=== PATIENT | male | born 1990 | race Caucasian/White ===

== ENCOUNTER 2017-10-21 07:57 | Inpatient (IN) | payer SELFPAY ==
[2017-10-21] MEDS ORDERED: Sodium Chloride 0.9% 1,000 ML IV ONE ×2 (08:01→10:57)
[2017-10-21] MEDS ORDERED: Sodium Chloride 0.9% 2.5 ML Syringe FLUSH PRN (08:01)
[2017-10-21] MEDS ORDERED: Sodium Chloride 0.9% 10 ML Syringe FLUSH PRN (08:01)
--- NOTE | 2017-10-21 08:03 | EDM.PDOC ---
ED HPI GENERAL MEDICAL PROBLEM - General Stated Complaint: SEIZURE Time Seen by Provider: 10/21/17 08:00 - History of Present Illness INITIAL COMMENTS - FREE TEXT/NARRATIVE: HISTORY AND PHYSICAL: History of present illness: Patient 27-year-old white male presents status post generalized seizure that lasted 3-5 minutes with associated postictal. There is no associated trauma this occurred at work patient is no seizure history denies drug or alcohol abuse. There's been no recent trauma upon arrival he has no complaints of chest pain shortness of breath or other concerns. Review of systems: As per history of present illness and below otherwise all systems reviewed and negative. Past medical history: As per history of present illness and as reviewed below otherwise noncontributory. Surgical history: As per history of present illness and as reviewed below otherwise noncontributory. Social history: No reported history of drug or alcohol abuse. Family history: As per history of present illness and as reviewed below otherwise noncontributory. Physical exam: HEENT: Atraumatic, normocephalic, pupils reactive, negative for conjunctival pallor or scleral icterus, mucous membranes moist, throat clear, neck supple, nontender, trachea midline. Lungs: Clear to auscultation, breath sounds equal bilaterally, chest nontender. Heart: S1S2, regular, negative for clicks, rubs, or JVD. Abdomen: Soft, nondistended, nontender. Negative for masses or hepatosplenomegaly. Negative for costovertebral tenderness. Pelvis: Stable nontender. Genitourinary: Deferred. Rectal: Deferred. Extremities: Atraumatic, negative for cords or calf pain. Neurovascular unremarkable. Neuro: Awake, alert, oriented. Cranial nerves II through XII unremarkable. Cerebellum unremarkable. Motor and sensory unremarkable throughout. Exam nonfocal. Diagnostics: CBC CMP PT/INR urine drug screen EtOH prolactin level CT brain chest x-ray EKG Therapeutics: IV O2 monitor Impression: 1 new-onset seizure Definitive disposition and diagnosis as appropriate pending reevaluation and review of above. - Related Data Allergies Allergy/AdvReac Type Severity Reaction Status Date / Time nickel Allergy Rash Verified 10/21/17 08:05 Home Meds: Home Meds . [No Known Home Meds] 10/21/17 [History] ED ROS GENERAL - Review of Systems Review Of Systems: ROS reveals no pertinent complaints other than HPI. ED EXAM, GENERAL - Physical Exam Exam: See Below (See dictation) Course - Vital Signs Last Recorded V/S: Last Vital Signs Temp 36.8 C 10/21/17 09:48 Pulse 75 10/21/17 09:48 Resp 14 10/21/17 09:48 BP 122/78 10/21/17 09:48 Pulse Ox 97 10/21/17 09:48 - Orders/Labs/Meds Orders: Active Orders 24 hr Category Date Time Status Cardiac Monitoring [RC] . DIRECTED Care 10/21/17 08:00 Active EKG Documentation Completion [RC] STAT Care 10/21/17 08:00 Active Pulse Oximetry [RC] ASDIRECTED Care 10/21/17 08:00 Active Sodium Chloride 0.9% [Saline Flush] Med 10/21/17 08:01 Active 10 ml FLUSH ASDIRECTED PRN Sodium Chloride 0.9% [Saline Flush] Med 10/21/17 08:01 Active 2.5 ml FLUSH ASDIRECTED PRN Saline Lock Insert [OM.PC] Stat Oth 10/21/17 08:00 Ordered Medication Orders Sodium Chloride (Saline Flush) 10 ml FLUSH ASDIRECTED PRN PRN Reason: Keep Vein Open Sodium Chloride (Saline Flush) 2.5 ml FLUSH ASDIRECTED PRN PRN Reason: Keep Vein Open Labs: Laboratory Tests 10/21/17 10/21/17 10/21/17 Range/Units 08:05 08:05 08:05 WBC 4.14 (4.0-11.0) K/uL RBC 4.20 L (4.50-5.90) M/uL Hgb 13.9 (13.0-17.0) g/dL Hct 40.7 (38.0-50.0) % MCV 96.9 (80.0-98.0) fL MCH 33.1 H (27.0-32.0) pg MCHC 34.2 (31.0-37.0) g/dL RDW Std Deviation 45.7 (28.0-62.0) fl RDW Coeff of Monika 13 (11.0-15.0) % Plt Count 124 L (150-400) K/uL MPV 9.50 (7.40-12.00) fL Add Manual Diff YES Neutrophils % (Manual) 67 (48.0-80.0) % Lymphocytes % (Manual) 19 (16.0-40.0) % Monocytes % (Manual) 14 (0.0-15.0) % Nucleated RBC % 0.0 /100WBC Absolute Seg Neuts 2.8 (1.4-5.7) Lymphocytes # (Manual) 0.8 (0.6-2.4) Monocytes # (Manual) 0.6 (0.0-0.8) Nucleated RBCs # 0 K/uL INR 1.04 ABG Carboxyhemoglobin 3.1 (0-15) % Sodium (136-148) mmol/L Potassium (3.5-5.1) mmol/L Chloride (98-107) mmol/L Carbon Dioxide (21.0-32.0) mmol/L BUN (7.0-18.0) mg/dL Creatinine (0.8-1.3) mg/dL Est Cr Clr Drug Dosing mL/min Estimated GFR (MDRD) ml/min Glucose (74-106) mg/dL Calcium (8.5-10.1) mg/dL Total Bilirubin (0.2-1.0) mg/dL AST (15-37) IU/L ALT (14-63) IU/L Alkaline Phosphatase (46-116) U/L Total Protein (6.4-8.2) g/dL Albumin (3.4-5.0) g/dL Globulin (2.0-3.5) g/dL Albumin/Globulin Ratio (1.3-2.8) Prolactin (1-23) ng/mL Urine Color Urine Appearance Urine pH (5.0-8.0) Ur Specific [place] (1.001-1.035) Urine Protein (NEGATIVE) mg/dL Urine Glucose (UA) (NEGATIVE) mg/dL Urine Ketones (NEGATIVE) mg/dL Urine Occult Blood (NEGATIVE) Urine Nitrite (NEGATIVE) Urine Bilirubin (NEGATIVE) Urine Ictotest Urine Urobilinogen (<2.0) EU/dL Ur Leukocyte Esterase (NEGATIVE) Urine RBC (0-2/HPF) Urine WBC (0-5/HPF) Ur Epithelial Cells (NONE-FEW) Urine Bacteria (NEGATIVE) Urine Mucus (NONE-MOD) Urine Opiates Screen (NEGATIVE) Ur Oxycodone Screen (NEGATIVE) Urine Methadone Screen (NEGATIVE) Ur Barbiturates Screen (NEGATIVE) Ur Phencyclidine Scrn (NEGATIVE) Ur Amphetamine Screen (NEGATIVE) U Methamphetamines Scrn (NEGATIVE) U Benzodiazepines Scrn (NEGATIVE) U Cocaine Metab Screen (NEGATIVE) U Marijuana (THC) Screen (NEGATIVE) Ethyl Alcohol mg/dL 10/21/17 10/21/17 10/21/17 Range/Units 08:05 08:45 08:45 WBC (4.0-11.0) K/uL RBC (4.50-5.90) M/uL Hgb (13.0-17.0) g/dL Hct (38.0-50.0) % MCV (80.0-98.0) fL MCH (27.0-32.0) pg MCHC (31.0-37.0) g/dL RDW Std Deviation (28.0-62.0) fl RDW Coeff of Monika (11.0-15.0) % Plt Count (150-400) K/uL MPV (7.40-12.00) fL Add Manual Diff Neutrophils % (Manual) (48.0-80.0) % Lymphocytes % (Manual) (16.0-40.0) % Monocytes % (Manual) (0.0-15.0) % Nucleated RBC % /100WBC Absolute Seg Neuts (1.4-5.7) Lymphocytes # (Manual) (0.6-2.4) Monocytes # (Manual) (0.0-0.8) Nucleated RBCs # K/uL INR ABG Carboxyhemoglobin (0-15) % Sodium 136 (136-148) mmol/L Potassium 2.9 L (3.5-5.1) mmol/L Chloride 96 L (98-107) mmol/L Carbon Dioxide 19.1 L (21.0-32.0) mmol/L BUN 5 L (7.0-18.0) mg/dL Creatinine 1.3 (0.8-1.3) mg/dL Est Cr Clr Drug Dosing 80.11 mL/min Estimated GFR (MDRD) > 60.0 ml/min Glucose 178 H (74-106) mg/dL Calcium 9.8 (8.5-10.1) mg/dL Total Bilirubin 1.4 H (0.2-1.0) mg/dL AST 133 H (15-37) IU/L ALT 156 H (14-63) IU/L Alkaline Phosphatase 72 (46-116) U/L Total Protein 8.5 H (6.4-8.2) g/dL Albumin 4.9 (3.4-5.0) g/dL Globulin 3.6 H (2.0-3.5) g/dL Albumin/Globulin Ratio 1.4 (1.3-2.8) Prolactin 47 H (1-23) ng/mL Urine Color DARK YELLOW Urine Appearance CLEAR Urine pH 6.0 (5.0-8.0) Ur Specific [place] >= 1.030 (1.001-1.035) Urine Protein >=300 (NEGATIVE) mg/dL Urine Glucose (UA) 100 H (NEGATIVE) mg/dL Urine Ketones TRACE H (NEGATIVE) mg/dL Urine Occult Blood NEGATIVE (NEGATIVE) Urine Nitrite POSITIVE H (NEGATIVE) Urine Bilirubin MODERATE H (NEGATIVE) Urine Ictotest NEGATIVE Urine Urobilinogen >=8.0 H (<2.0) EU/dL Ur Leukocyte Esterase NEGATIVE (NEGATIVE) Urine RBC 1-3 (0-2/HPF) Urine WBC 0-2 (0-5/HPF) Ur Epithelial Cells OCCASIONAL (NONE-FEW) Urine Bacteria RARE (NEGATIVE) Urine Mucus MODERATE (NONE-MOD) Urine Opiates Screen NEGATIVE (NEGATIVE) Ur Oxycodone Screen NEGATIVE (NEGATIVE) Urine Methadone Screen NEGATIVE (NEGATIVE) Ur Barbiturates Screen NEGATIVE (NEGATIVE) Ur Phencyclidine Scrn NEGATIVE (NEGATIVE) Ur Amphetamine Screen NEGATIVE (NEGATIVE) U Methamphetamines Scrn NEGATIVE (NEGATIVE) U Benzodiazepines Scrn NEGATIVE (NEGATIVE) U Cocaine Metab Screen NEGATIVE (NEGATIVE) U Marijuana (THC) Screen POSITIVE (NEGATIVE) Ethyl Alcohol <3 mg/dL Meds: Medications Generic Name Dose Route Start Last Admin Trade Name Freq PRN Reason Stop Dose Admin Sodium Chloride 10 ml 10/21/17 08:01 Saline Flush FLUSH ASDIRECTED PRN Keep Vein Open Sodium Chloride 2.5 ml 10/21/17 08:01 Saline Flush FLUSH ASDIRECTED PRN Keep Vein Open Discontinued Medications Generic Name Dose Route Start Last Admin Trade Name Freq PRN Reason Stop Dose Admin Sodium Chloride 1,000 mls @ 999 mls/hr 10/21/17 08:01 10/21/17 08:12 Normal Saline IV 10/21/17 09:01 999 mls/hr STAT ONE Administration Departure - Departure Time of Disposition: 10:16 Disposition: Refer to Observation Condition: Good Clinical Impression: New onset seizure - Discharge Information - My Orders Last 24 Hours: My Active Orders 10/21/17 08:00 Cardiac Monitoring [RC] . DIRECTED EKG Documentation Completion [RC] STAT Pulse Oximetry [RC] ASDIRECTED Saline Lock Insert [OM.PC] Stat 10/21/17 08:01 Sodium Chloride 0.9% [Saline Flush] 10 ml FLUSH ASDIRECTED PRN Sodium Chloride 0.9% [Saline Flush] 2.5 ml FLUSH ASDIRECTED PRN - Assessment/Plan Last 24 Hours: My Active Orders 10/21/17 08:00 Cardiac Monitoring [RC] . DIRECTED EKG Documentation Completion [RC] STAT Pulse Oximetry [RC] ASDIRECTED Saline Lock Insert [OM.PC] Stat 10/21/17 08:01 Sodium Chloride 0.9% [Saline Flush] 10 ml FLUSH ASDIRECTED PRN Sodium Chloride 0.9% [Saline Flush] 2.5 ml FLUSH ASDIRECTED PRN
[2017-10-21 08:46] LABS: CHLORIDE,CL 96 mmol/L (98-107); SODIUM,NA 136 mmol/L (136-148)
--- NOTE | 2017-10-21 09:44 | CR ---
EXAMINATION: Portable chest radiograph. HISTORY: Shortness of breath. FINDINGS: The trachea is midline. The cardiomediastinal silhouette is within normal limits. No pulmonary infilt rates, effusions or pneumothorax. Osseous structures appear unremarkable. IMPRESSION: No acute cardiopulmonary process.
--- NOTE | 2017-10-21 09:46 | CT ---
EXAMINATION: Non contrast CT head. Coronal and sagittal reformats. HISTORY: Pain FINDINGS: No evidence of intra or extra axial hemorrhage, mass, midline shift, hydrocephalus or edema. No hypoattenuation changes in the major vascular territories to suggest acute infarct. No abnormal intracranial calcifications are detected. No evidence of substantial vascular calcificat ions. There is a small mucous retention cyst within the left maxillary sinus. Mastoid air cells are clear. Orbits and globes are symmetric. Pituitary fossa appears unremarkable. Calvarium is intact. No evidence of skull fracture. IMPRESSION: No acute intracranial findings.
[2017-10-21] MEDS ORDERED: Alum Hydrox/Mag Hydrox/Simeth 15 ML, Lidocaine 2% 5 ML PO ONE ×2 (11:02)
[2017-10-21] MEDS ORDERED: Ondansetron 4 MG/2 ML SDV IVPUSH ONE (11:18)
--- NOTE | 2017-10-21 11:31 | PCM.HP ---
H&P History of Present Illness - General Date of Service: 10/21/17 Admit Problem/Dx: Admission Diagnosis/Problem Admission Diagnosis/Problem Seizure Source of Information: Patient History Limitations: Reports: No Limitations - History of Present Illness Initial Comments - Free Text/Narative: Note: This is patient's admission as well as transfer/discharge summary. 27-year-old male admitted 10/21/17 for new onset seizure found to be in acute alcohol withdrawal with past medical history of alcohol abuse. Patient initially presented to emergency department with chief complaint of new onset seizure. 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 His coworker stated that he had a generalized tonic clonic seizure. Thus patient was taken directly to the emergency department for further evaluation. Patient reported no past seizure history. He does admit to drinking a half a liter of vodka daily. He also states he's been admitted to hospitals in the past for acute alcohol withdrawal. States that he does have serious withdrawal and has had to stay multiple days secondary to this. Does admit to some violent behavior with his withdrawl. States his coworkers said that he had a seizure for approximately 5-6 minutes. Patient is originally from [facility] and states that he plans to return there and is hoping for some alcohol treatment. Last drink was yesterday before his normal work shifts. Patient denied any chest pain, palpitations, shortness breath, or new focal neurologic deficits. Of note patient was initially admitted to the hospital under the impression of new onset seizures. Alcohol history was not forthcoming until patient was on the floor. Secondary to staffing issues and a full ICU patient was transferred for further treatment to [place]. In the emergency department initial labs showed an unremarkable CBC, INR, and carboxyhemoglobin. He was hypokalemic at 2.9 with a low bicarbonate 19.1. There was elevated liver function tests including a total bilirubin of 1.4, AST 133, and ADL TE of 156. Prolactin was elevated at 47. Chest x-ray and CT of the head was unremarkable. Patient did not complain of any abdominal pain but then before transfer had one episode of emesis with blood streaking. Patient was placed nothing by mouth and started on a banana bag as well as Protonix 80 mg IV. He was transferred to [facility] with accepting physician Dr. Roger in their emergency department. All above information was communicated to accepting physician. Patient was transferred by ambulance. Generalized Pain Score (Numeric/FACES): 3 - Related Data Allergies/Adverse Reactions: Allergies Allergy/AdvReac Type Severity Reaction Status Date / Time nickel Allergy Rash Verified 10/21/17 08:05 Home Medications: Home Meds . [No Known Home Meds] 10/21/17 [History] Past Medical History - Past Health History Medical/Surgical History: Denies Medical/Surgical History - Infectious Disease History Infectious Disease History: Reports: Chicken Pox Social & Family History - Family History Family Medical History: Noncontributory - Tobacco Use Smoking Status *Q: Current Every Day Smoker Years of Tobacco use: 10 Packs/Tins Daily: 0 - Caffeine Use Caffeine Use: Reports: None - Recreational Drug Use Recreational Drug Use: Yes Recreational Drug Type: Reports: Marijuana/Hashish Other Recreational Drug Type: occasional marijuana use H&P Review of Systems - Review of Systems: Review Of Systems: See Below General: Reports: Fatigue. Denies: Fever, Chills, Malaise, Weakness HEENT: Denies: Dysphasia, Headaches, Sore Throat Pulmonary: Denies: Shortness of Breath, Pleuritic Chest Pain, Cough, Sputum Cardiovascular: Denies: Chest Pain, Palpitations, Edema Gastrointestinal: Reports: Nausea. Denies: Abdominal Pain, Black Stool, Bloody Stool, Diarrhea, Vomiting Genitourinary: Denies: Dysuria, Hematuria Musculoskeletal: Denies: Neck Pain, Leg Pain Skin: Denies: Cyanosis Psychiatric: Reports: Depression, Anxiety. Denies: Confusion Neurological: Reports: Seizure. Denies: Confusion, Dizziness, Headache Hematologic/Lymphatic: Denies: Anemia Immunologic: Denies: Anaphylaxis Exam - Exam Exam: See Below - Vital Signs Vital Signs: Last Vital Signs Temp 98.2 F 10/21/17 10:55 Pulse 75 10/21/17 10:55 Resp 16 10/21/17 10:55 BP 128/72 10/21/17 10:55 Pulse Ox 96 10/21/17 10:55 Weight: 65.771 kg - Exam Quality Assessment: DVT Prophylaxis General: Alert, Oriented, Cooperative, Mild Distress HEENT: Conjunctiva Clear, EACs Clear, EOMI, Hearing Intact, Mucosa Moist & [place] , Nares Patent, Normal Nasal Septum, Posterior Pharynx Clear, PERRLA Neck: Supple, Trachea Midline, 2 Lungs: Clear to Auscultation, Normal Respiratory Effort. No: Crackles, Rales, Rhonchi Cardiovascular: Regular Rhythm, Normal S1, Normal S2, Tachycardia GI/Abdominal Exam: Normal Bowel Sounds, No Organomegaly, No Distention, Pelvis Stable (Male) Exam: Deferred Rectal (Males) Exam: Deferred Back Exam: Normal Inspection Extremities: Normal Inspection, No Pedal Edema, Normal Capillary Refill Peripheral Pulses: 2+: Radial (L), Radial (R), Posterior Tibial (L), Posterior Tibial (R), Dorsalis Pedis (L), Dorsalis Pedis (R) Skin: Warm, Intact, Moist Neurological: Cranial Nerves Intact Neuro Extensive - Mental Status: Alert, Oriented x3, Normal Mood/Affect, Normal Cognition Neuro Extensive - Motor, Sensory, Reflexes: CN II-XII Intact Psychiatric: Alert, Anxious, Withdrawal Symptoms - Patient Data Lab Results Last 24 hrs: Laboratory Results - last 24 hr 10/21/17 10/21/17 10/21/17 Range/Units 08:05 08:05 08:05 WBC 4.14 (4.0-11.0) K/uL RBC 4.20 L (4.50-5.90) M/uL Hgb 13.9 (13.0-17.0) g/dL Hct 40.7 (38.0-50.0) % MCV 96.9 (80.0-98.0) fL MCH 33.1 H (27.0-32.0) pg MCHC 34.2 (31.0-37.0) g/dL RDW Std Deviation 45.7 (28.0-62.0) fl RDW Coeff of Monika 13 (11.0-15.0) % Plt Count 124 L (150-400) K/uL MPV 9.50 (7.40-12.00) fL Add Manual Diff YES Neutrophils % (Manual) 67 (48.0-80.0) % Lymphocytes % (Manual) 19 (16.0-40.0) % Monocytes % (Manual) 14 (0.0-15.0) % Nucleated RBC % 0.0 /100WBC Absolute Seg Neuts 2.8 (1.4-5.7) Lymphocytes # (Manual) 0.8 (0.6-2.4) Monocytes # (Manual) 0.6 (0.0-0.8) Nucleated RBCs # 0 K/uL INR 1.04 ABG Carboxyhemoglobin 3.1 (0-15) % Sodium (136-148) mmol/L Potassium (3.5-5.1) mmol/L Chloride (98-107) mmol/L Carbon Dioxide (21.0-32.0) mmol/L BUN (7.0-18.0) mg/dL Creatinine (0.8-1.3) mg/dL Est Cr Clr Drug Dosing mL/min Estimated GFR (MDRD) ml/min Glucose (74-106) mg/dL Calcium (8.5-10.1) mg/dL Total Bilirubin (0.2-1.0) mg/dL AST (15-37) IU/L ALT (14-63) IU/L Alkaline Phosphatase (46-116) U/L Total Protein (6.4-8.2) g/dL Albumin (3.4-5.0) g/dL Globulin (2.0-3.5) g/dL Albumin/Globulin Ratio (1.3-2.8) Prolactin (1-23) ng/mL Urine Color Urine Appearance Urine pH (5.0-8.0) Ur Specific [place] (1.001-1.035) Urine Protein (NEGATIVE) mg/dL Urine Glucose (UA) (NEGATIVE) mg/dL Urine Ketones (NEGATIVE) mg/dL Urine Occult Blood (NEGATIVE) Urine Nitrite (NEGATIVE) Urine Bilirubin (NEGATIVE) Urine Ictotest Urine Urobilinogen (<2.0) EU/dL Ur Leukocyte Esterase (NEGATIVE) Urine RBC (0-2/HPF) Urine WBC (0-5/HPF) Ur Epithelial Cells (NONE-FEW) Urine Bacteria (NEGATIVE) Urine Mucus (NONE-MOD) Urine Opiates Screen (NEGATIVE) Ur Oxycodone Screen (NEGATIVE) Urine Methadone Screen (NEGATIVE) Ur Barbiturates Screen (NEGATIVE) Ur Phencyclidine Scrn (NEGATIVE) Ur Amphetamine Screen (NEGATIVE) U Methamphetamines Scrn (NEGATIVE) U Benzodiazepines Scrn (NEGATIVE) U Cocaine Metab Screen (NEGATIVE) U Marijuana (THC) Screen (NEGATIVE) Ethyl Alcohol mg/dL 10/21/17 10/21/17 10/21/17 Range/Units 08:05 08:45 08:45 WBC (4.0-11.0) K/uL RBC (4.50-5.90) M/uL Hgb (13.0-17.0) g/dL Hct (38.0-50.0) % MCV (80.0-98.0) fL MCH (27.0-32.0) pg MCHC (31.0-37.0) g/dL RDW Std Deviation (28.0-62.0) fl RDW Coeff of Monika (11.0-15.0) % Plt Count (150-400) K/uL MPV (7.40-12.00) fL Add Manual Diff Neutrophils % (Manual) (48.0-80.0) % Lymphocytes % (Manual) (16.0-40.0) % Monocytes % (Manual) (0.0-15.0) % Nucleated RBC % /100WBC Absolute Seg Neuts (1.4-5.7) Lymphocytes # (Manual) (0.6-2.4) Monocytes # (Manual) (0.0-0.8) Nucleated RBCs # K/uL INR ABG Carboxyhemoglobin (0-15) % Sodium 136 (136-148) mmol/L Potassium 2.9 L (3.5-5.1) mmol/L Chloride 96 L (98-107) mmol/L Carbon Dioxide 19.1 L (21.0-32.0) mmol/L BUN 5 L (7.0-18.0) mg/dL Creatinine 1.3 (0.8-1.3) mg/dL Est Cr Clr Drug Dosing 80.11 mL/min Estimated GFR (MDRD) > 60.0 ml/min Glucose 178 H (74-106) mg/dL Calcium 9.8 (8.5-10.1) mg/dL Total Bilirubin 1.4 H (0.2-1.0) mg/dL AST 133 H (15-37) IU/L ALT 156 H (14-63) IU/L Alkaline Phosphatase 72 (46-116) U/L Total Protein 8.5 H (6.4-8.2) g/dL Albumin 4.9 (3.4-5.0) g/dL Globulin 3.6 H (2.0-3.5) g/dL Albumin/Globulin Ratio 1.4 (1.3-2.8) Prolactin 47 H (1-23) ng/mL Urine Color DARK YELLOW Urine Appearance CLEAR Urine pH 6.0 (5.0-8.0) Ur Specific [place] >= 1.030 (1.001-1.035) Urine Protein >=300 (NEGATIVE) mg/dL Urine Glucose (UA) 100 H (NEGATIVE) mg/dL Urine Ketones TRACE H (NEGATIVE) mg/dL Urine Occult Blood NEGATIVE (NEGATIVE) Urine Nitrite POSITIVE H (NEGATIVE) Urine Bilirubin MODERATE H (NEGATIVE) Urine Ictotest NEGATIVE Urine Urobilinogen >=8.0 H (<2.0) EU/dL Ur Leukocyte Esterase NEGATIVE (NEGATIVE) Urine RBC 1-3 (0-2/HPF) Urine WBC 0-2 (0-5/HPF) Ur Epithelial Cells OCCASIONAL (NONE-FEW) Urine Bacteria RARE (NEGATIVE) Urine Mucus MODERATE (NONE-MOD) Urine Opiates Screen NEGATIVE (NEGATIVE) Ur Oxycodone Screen NEGATIVE (NEGATIVE) Urine Methadone Screen NEGATIVE (NEGATIVE) Ur Barbiturates Screen NEGATIVE (NEGATIVE) Ur Phencyclidine Scrn NEGATIVE (NEGATIVE) Ur Amphetamine Screen NEGATIVE (NEGATIVE) U Methamphetamines Scrn NEGATIVE (NEGATIVE) U Benzodiazepines Scrn NEGATIVE (NEGATIVE) U Cocaine Metab Screen NEGATIVE (NEGATIVE) U Marijuana (THC) Screen POSITIVE (NEGATIVE) Ethyl Alcohol <3 mg/dL Result Diagrams: 10/21/17 08:05 10/21/17 08:05 *Q Meaningful Use (ADM) - VTE *Q VTE Criteria *Q: - Stroke *Q Stroke Criteria *Q: - AMI *Q AMI Criteria *Q: - Problem List (1) Alcohol withdrawal seizure SNOMED Code(s): 046111117 ICD Code: F10.239 - ALCOHOL DEPENDENCE WITH WITHDRAWAL, UNSPECIFIED; R56.9 - UNSPECIFIED CONVULSIONS Status: Acute Priority: High Current Visit: Yes Qualifiers: Complication of substance-induced condition: with unspecified complication Qualified Code(s): F10.239 - Alcohol dependence with withdrawal, unspecified; R56.9 - Unspecified convulsions; R56.9 - Unspecified convulsions; R56.9 - Unspecified convulsions; R56.9 - Unspecified convulsions (2) New onset seizure SNOMED Code(s): 22773600 ICD Code: R56.9 - UNSPECIFIED CONVULSIONS Status: Acute Priority: High Current Visit: Yes (3) Alcohol abuse SNOMED Code(s): 73184581 ICD Code: F10.10 - ALCOHOL ABUSE, UNCOMPLICATED Status: Acute Priority: High Current Visit: Yes Problem List Initiated/Reviewed/Updated: Yes Orders Last 24hrs: Active Orders 24 hr Category Date Time Status Patient Status [ADT] Stat ADT 10/21/17 10:17 Active Cardiac Monitoring [RC] . DIRECTED Care 10/21/17 08:00 Active EKG Documentation Completion [RC] STAT Care 10/21/17 08:00 Active Pulse Oximetry [RC] ASDIRECTED Care 10/21/17 08:00 Active Sodium Chloride 0.9% [Normal Saline] 1,000 ml Med 10/21/17 10:57 Active IV ONETIME Sodium Chloride 0.9% [Saline Flush] Med 10/21/17 08:01 Active 10 ml FLUSH ASDIRECTED PRN Sodium Chloride 0.9% [Saline Flush] Med 10/21/17 08:01 Active 2.5 ml FLUSH ASDIRECTED PRN Saline Lock Insert [OM.PC] Stat Oth 10/21/17 08:00 Ordered Medication Orders Sodium Chloride (Normal Saline) 1,000 mls @ 125 mls/hr IV ONETIME ONE Stop: 10/21/17 18:56 Last Admin: 10/21/17 11:17 Dose: 125 mls/hr Sodium Chloride (Saline Flush) 10 ml FLUSH ASDIRECTED PRN PRN Reason: Keep Vein Open Sodium Chloride (Saline Flush) 2.5 ml FLUSH ASDIRECTED PRN PRN Reason: Keep Vein Open Assessment/Plan Comment:: 27-year-old male admitted 10/21/17 for new onset seizure found to be in acute alcohol withdrawal with past medical history of alcohol abuse. Patient initially presented to emergency department with chief complaint of new onset seizure. 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 His coworker stated that he had a generalized tonic clonic seizure. Thus patient was taken directly to the emergency department for further evaluation. Patient reported no past seizure history. He does admit to drinking a half a liter of vodka daily. He also states he's been admitted to hospitals in the past for acute alcohol withdrawal. States that he does have serious withdrawal and has had to stay multiple days secondary to this. Does admit to some violent behavior with his withdrawl. States his coworkers said that he had a seizure for approximately 5-6 minutes. Patient is originally from [facility] and states that he plans to return there and is hoping for some alcohol treatment. Last drink was yesterday before his normal work shifts. Patient denied any chest pain, palpitations, shortness breath, or new focal neurologic deficits. Of note patient was initially admitted to the hospital under the impression of new onset seizures. Alcohol history was not forthcoming until patient was on the floor. Secondary to staffing issues and a full ICU patient was transferred for further treatment to [place]. In the emergency department initial labs showed an unremarkable CBC, INR, and carboxyhemoglobin. He was hypokalemic at 2.9 with a low bicarbonate 19.1. There was elevated liver function tests including a total bilirubin of 1.4, AST 133, and ADL TE of 156. Prolactin was elevated at 47. Urine toxicology was only positive for marijuana, ETOH negative. Chest x-ray and CT of the head was unremarkable. Patient did not complain of any abdominal pain but then before transfer had one episode of emesis with blood streaking. Patient was placed nothing by mouth and started on a banana bag as well as Protonix 80 mg IV. He was transferred to [facility] with accepting physician Dr. Roger in their emergency department. All above information was communicated to accepting physician. Patient was transferred by ambulance.
[2017-10-21] MEDS ORDERED: Temazepam 15 MG Cap PO PRN (12:15)
[2017-10-21] MEDS ORDERED: oxyCODONE 5 MG Tab PO PRN (12:15)
[2017-10-21] MEDS ORDERED: Ondansetron 4 MG/2 ML SDV IVPUSH PRN (12:15)
[2017-10-21] MEDS ORDERED: Ondansetron 4 MG Tab.DIS PO PRN (12:15)
[2017-10-21] MEDS ORDERED: LORazepam 2 MG/ML SDV IVPUSH PRN (12:15)
[2017-10-21] MEDS ORDERED: MVI, Adult with Vitamin K 10 ML, Thiamine 100 MG, Folic Acid 1 MG in Sodium Chloride 0.... IV ONE ×4 (12:15)
[2017-10-21] MEDS ORDERED: Morphine 4 MG/ML Syringe IVPUSH PRN (12:15)
[2017-10-21] MEDS ORDERED: Pantoprazole 40 MG Vial IVPUSH SCH (12:15)
== END 2017-10-21 14:30 | DRG 101 ==
LOC: MW.ED 07:57 → MW.MS 10:17 → MW.ED 11:45 → OBSVTOIN 12:15
PROVIDERS: ADMIT Family Medicine; ATTEND Family Medicine
DX: R56.9 Unspecified convulsions (principal); F10.239 Alcohol dependence with withdrawal, unspecified; E87.6 Hypokalemia; F17.200 Nicotine dependence, unspecified, uncomplicated; F12.90 Cannabis use, unspecified, uncomplicated
CPT/HCPCS: 36415; 70450; 70450-26; 71045; 71045-26; 80053; 80305; 81001; 82375; 84146; 85025; 85610; 93005; 96361; 96374; 99283; 99285-25; A9270-GY; C9113; G0480; J2060; J2405; J3411; J7040